=== PATIENT | female | born 1960 | race Caucasian/White ===

== ENCOUNTER → 2016-08-26 | Outpatient (CLI) | payer OTHER ==
[~2016-08-26] MED LIST: ASPI81TA85 PO; ATOR1TAB21 PO; BLAC160C PO; CLAR10CA3 PO; GLUC15002 PO; JANU100T PO; MAGN30TA2 PO; METF500T PO; MULTTAB6 PO; SING10TA32 PO; VITA100054 PO; VITA100T20 PO; WELLTAB40 PO; [UNRECOGNIZED DRUG - CODE] PO
--- NOTE | 2016-08-26 10:26 | REP ---
BILIARY SCAN WITH GALLBLADDER EJECTION FRACTION: 08/26/2016 COMPARISON: 08/12/2016 CT. CLINICAL HISTORY: Abdominal pain, reflux, heartburn, bloating. FINDINGS: The patient received 5.9 mCi technetium 99m mebrofenin with 5 mm sequential images for 1 hour over the right upper quadrant. Thereafter the patient consumed 8 ounces of Ensure Enlive and rescanning at 2-minute intervals for 1 hour performed with region of interest drawn around the gallbladder. Gallbladder ejection fraction calculated by a semiautomated method. FINDINGS. Homogeneous prompt tracer distribution throughout the liver is noted. Activity is first seen in the common duct at 10 minutes and the duodenum and small bowel at 15 minutes with activity in the gallbladder fossa by 20 minutes. Progressive washout from the liver and progressive filling of the gallbladder and peristalsis into the liver continued over the 1 hour period of observation. Gallbladder ejection fraction at 1 hour is 93%. IMPRESSION: Normal biliary scan and gallbladder ejection fraction. Signed by Lc Ware MD 08/26/2016 05:06 P
== END ==
LOC: M RAD 07:38
PROVIDERS: ATTEND Nurse Practitioner Family
DX: R10.9 Unspecified abdominal pain (principal)

== ENCOUNTER → 2020-12-11 | Outpatient (CLI) | payer OTHER ==
[~2020-12-11] MED LIST changes: -ASPI81TA85 PO; +ASPI81TA86 PO; -METF500T PO; +METF500T13 PO; -VITA100T20 PO; +VITA100T51 PO
--- NOTE | 2020-12-11 15:04 | REP ---
INDICATION: HYPERCALCEMIA. COMPARISON: None. TECHNIQUE/RADIOTRACER AND DOSE: After the intravenous administration of 27.3 mCi of technetium 99 M sestamibi parathyroid imaging was obtained. FINDINGS: 2D scintigraphy of the neck shows normal appearing activity within the thyroid gland region on the 15 minute scintiscan. 3.5 hour delay parathyroid scintiscan failed to identify a focal area of activity significant enough to be considered positive for a parathyroid tumor. IMPRESSION: Negative exam <Electronically signed by Rodney Liz > 12/11/20 1500
== END ==
LOC: M RAD 08:13
PROVIDERS: ATTEND Nurse Practitioner Family
DX: E83.52 Hypercalcemia (principal)